=== PATIENT | female | born 1975 | race Asian ===

== ENCOUNTER 2018-11-02 05:32 | Emergency (ER) | payer SELFPAY ==
[~2018-11-02] VITALS: Ht 162.6 cm; Wt 54.4 kg
[2018-11-02 05:37] VITALS: BP 128/82
--- NOTE | 2018-11-02 05:38 | NUR ---
43/F PRESENTS WITH FAMILY, C/O HIVES X2 DAYS, NOTED THROUGHOUT CHEST, ABD, BACK, AND BUE. REPORTS ITCHING AND DIZZINESS. NO ANGIOEDEMA, NO SOB. S/P BREAST IMPLANT SURGERY (10/25/18) AND RX CEPHALEXIN 500MG PO BID STARTED (10/25/18). PT AWAKE AND ALERT, SKIN FLUSHED WARM AND DRY, RR EVEN AND UNLABORED. HX BREAST IMPLANT SURGERY; RX CEPHAEXIN; OTC ASPIRIN
--- NOTE | 2018-11-02 05:38 | NUR ---
PT TAKEN TO BED 5
--- NOTE | 2018-11-02 07:15 | NUR ---
Pt report given to EMMA Johnston. Transfer of care at this time.
--- NOTE | 2018-11-02 07:16 | NUR ---
PT [id number]. LAYING IN BED. RR EVEN AND UNLABORED. FAMILY BEDSIDE.
--- NOTE | 2018-11-02 07:26 | NUR ---
DR JENNINGS AT BEDSIDE
[2018-11-02] MEDS ORDERED: FAMOTIDINE 20 MG TAB PO ONE (07:45)
[2018-11-02] MEDS ORDERED: predniSONE 20 MG TAB PO ONE (07:45)
[2018-11-02 08:35] VITALS: BP 129/97
--- NOTE | 2018-11-02 08:35 | NUR ---
Patient discharged with v/s stable. Written and verbal after care instructions given and explained. Patient alert, oriented and verbalized understanding of instructions. Ambulatory with steady gait. All questions addressed prior to discharge. ID band removed. Patient advised to follow up with PMD. Rx of PREDNISONE, PEPCID, BENADRYL, EPIPEN given. PT INSTRYUCTED ON HOW TO USE EPIPEN. Patient educated on indication of medication including possible reaction and side effects. Opportunity to ask questions provided and answered.
== END 2018-11-02 08:35 | disposition home or self-care (01) ==
LOC: MED 05:32
DX: L50.9 Urticaria, unspecified (principal); T36.1X5A Adverse effect of cephalosporins and other beta-lactam antibiotics, initial encounter; Z98.890 Other specified postprocedural states; Z85.3 Personal history of malignant neoplasm of breast; Y92.89 Other specified places as the place of occurrence of the external cause
CPT/HCPCS: 99284; J7512; Q0163